=== PATIENT | female | born 1950 | race Caucasian/White ===

== ENCOUNTER 2018-12-31 15:02 | Emergency (ER) | payer BC, MEDICARE ==
[2018-12-31 15:41] VITALS: BP 141/77
--- NOTE | 2018-12-31 15:48 | UC ---
UC General HPI - HPI Summary HPI Summary: awoke last pm feeling dizzy. also notes L ear feels like has fluid. this am had some recurrent dizziness and a little nausea. dizziness occurs when turns had to side on motion of looking up/dpwn. No headache, fever, visual disturbances or numbness/tingling/weakness/facial droop. had a negative contrast CT 3 years ago because her sister a ruptured aneurysm. the ct was normal. - History of Current Complaint Chief Complaint: UCGeneralIllness Stated Complaint: DIZZINESS/NAUSEA Time Seen by Provider: 12/31/18 15:41 Hx Obtained From: Patient Hx Last Menstrual Period: N/A Pain Intensity: 0 Associated Signs & Symptoms: Negative: Fever, Headache, Vomiting - Allergy/Home Medications Allergies/Adverse Reactions: Allergies Allergy/AdvReac Type Severity Reaction Status Date / Time No Known Allergies Allergy Verified 12/31/18 15:37 Home Medications: Home Medications DULoxetine DR CAP* [Cymbalta CAP*] 60 mg PO DAILY 12/31/18 [History Confirmed ] Dextroamphetamine/Amphetamine [Adderall Xr 20 mg Capsule] 20 mg PO DAILY PRN 03/16 [History Confirmed 12/31/18] Ezetimibe TAB* [Zetia TAB*] 10 mg PO DAILY 12/31/18 [History Confirmed 12/31/18] Lisinopril/HCTZ 20/25(NF) [Zestoretic 20/25(NF)] 1 tab PO DAILY 12/31/18 [ History Confirmed 12/31/18] PMH/Surg Hx/FS Hx/Imm Hx Endocrine History: Dyslipidemia Cardiovascular History: Hypertension Psychological History: Anxiety - Surgical History Surgical History: Yes Surgery Procedure, Year, and Place: rotator cuff. left tibial plateua fx - Family History Known Family History: Positive: Other - sister with cerebral aneurysm - Social History Occupation: Employed Full-time Alcohol Use: None Substance Use Type: None Smoking Status (MU): Never Smoked Tobacco Review of Systems All Other Systems Reviewed And Are Negative: Yes Eyes: Positive: Negative Respiratory: Positive: Other - occasional whhezing with bronchitis that resolved with roommates inhaler Cardiovascular: Positive: Negative Gastrointestinal: Positive: Nausea - when dizzy Motor: Positive: Negative Neurovascular: Positive: Negative Musculoskeletal: Positive: Negative Neurological: Positive: Negative Physical Exam Triage Information Reviewed: Yes Appearance: Well-Appearing Vital Signs: Initial Vital Signs Temp 97.3 F 12/31/18 15:31 Pulse 71 12/31/18 15:31 Resp 16 12/31/18 15:31 BP 139/69 12/31/18 15:31 Pulse Ox 98 12/31/18 15:31 Vital Signs Reviewed: Yes Eyes: Positive: Conjunctiva Clear, Other: - PERRL, EOMI. Mild horizontal nystagmus with rapid tirn of headf ENT: Positive: Pharynx normal, TMs normal. Negative: Nasal congestion, Nasal drainage Neck: Positive: Supple, Nontender, No Lymphadenopathy, Other: - No carotid bruits Respiratory: Positive: Lungs clear, Normal breath sounds, No respiratory distress Cardiovascular: Positive: RRR, No Murmur Abdomen Description: Positive: Nontender, No Organomegaly, Soft Bowel Sounds: Positive: Present Musculoskeletal: Positive: ROM Intact Neurological: Positive: Other: - A&Ox3. CN 2-12 grossly intact. 5/5 strength, 2 + reflexes and sensation intactx4. steady gait. Negative rhomberg and pronator drift. Rapid trun of head reproduces dizziness the resolves with rest/being still. Psychological: Positive: Age Appropriate Behavior Skin Exam: Normal Course/Dx - Course Course Of Treatment: NO ORTHOSTATIC CHANGES. NEURO EXAM IS REASSURING. S/S'S REPRODUCIBLE WITH TURN OF HEAD. - Differential Dx - Multi-Symptom Differential Diagnoses: Other - PERIPHERAL VERTIGO, NO CONCERN FOR CENTRAL. - Diagnoses Provider Diagnosis: Dizziness Discharge - Sign-Out/Discharge Documenting (check all that apply): Patient Departure All imaging exams completed and their final reports reviewed: No Studies - Discharge Plan Condition: Stable Disposition: HOME Prescriptions: Albuterol HFA INHALER* [Ventolin HFA Inhaler*] 2 puff INH Q6H PRN #1 mdi PRN Reason: Wheezing Meclizine TAB* [Antivert 12.5 TAB*] 25 mg PO TID PRN #10 tab PRN Reason: Dizziness Patient Education Materials: Dizziness (ED) Referrals: Mela Valenzuela MD [Primary Care Provider] - 3 Days - Billing Disposition and Condition Condition: STABLE Disposition: Home - Attestation Statements Provider Attestation: Per institutional requirements, I have reviewed the chart, however, I was not consulted specifically or made aware of this patient by the midlevel provider. I did not personally evaluate, interact with , or disposition this patient.
== END 2018-12-31 16:03 | disposition home or self-care (01) ==
LOC: UCCORT 15:02
DX: R42 Dizziness and giddiness (principal); I10 Essential (primary) hypertension; F32.9 Major depressive disorder, single episode, unspecified; R11.0 Nausea; Z79.899 Other long term (current) drug therapy
CPT/HCPCS: 99212; G0463

== ENCOUNTER 2019-12-31 08:09 | Emergency (ER) | payer MEDICARE ==
[2019-12-31 08:19] VITALS: BP 149/72
--- NOTE | 2019-12-31 08:41 | UC ---
Shortness of Breath HPI - HPI Summary HPI Summary: shortness of breath x 1 week symptoms has been moderated to sever, worse with exertion , better with rest, denies any fever, no chills, had cold symptoms for the past 4 weeks with cough , chest tightness, wheezing, denies any chest pain , no calf pain, no recent travel - History of Current Complaint Chief Complaint: UCRespiratory Stated Complaint: SOB Time Seen by Provider: 12/31/19 08:20 Hx Obtained From: Patient Hx Last Menstrual Period: N/A Onset/Duration: Gradual Onset, Lasting Weeks - 1, Still Present Timing: Constant Current Severity: Moderate Dyspnea At: Exertion Aggravating Factors: Movement Alleviating Factors: Other - rest Associated Signs & Symptoms: Positive: Cough (Nonproductive), Wheezing. Negative: Chest Pain w/Cough, Chest Pain Unrelated to Cough, Fever, Chills, Diaphoresis, Nasal Congestion, Dizzy, Calf Pain/Swelling, Edema - Allergy/Home Medications Allergies/Adverse Reactions: Allergies Allergy/AdvReac Type Severity Reaction Status Date / Time No Known Allergies Allergy Verified 12/31/19 08:17 Home Medications: Home Medications Albuterol HFA INHALER* [Ventolin HFA Inhaler*] 2 puff INH Q6H PRN #1 mdi [Rx Confirmed 12/31/19] DULoxetine DR CAP* [Cymbalta CAP*] 60 mg PO DAILY 12/31/18 [History Confirmed ] Ezetimibe TAB* [Zetia TAB*] 10 mg PO DAILY 12/31/18 [History Confirmed 12/31/19] Lisinopril/HCTZ (NF) [Zestoretic 20(NF)] 1 tab PO DAILY 12/31/18 [ History Confirmed 12/31/19] Albuterol HFA INHALER* [Ventolin HFA Inhaler*] 2 puff INH Q6H PRN #1 mdi [Rx] predniSONE 20 mg TAB [Deltasone 20 MG TAB*] 40 mg PO DAILY #10 tab 12/31/19 [Rx] PMH/Surg Hx/FS Hx/Imm Hx Cardiovascular History: Hypertension - Surgical History Surgical History: Yes Surgery Procedure, Year, and Place: rotator cuff. left tibial plateua fx - Family History Known Family History: Positive: Hypertension, Other - sister with cerebral aneurysm - Social History Alcohol Use: None Substance Use Type: None Smoking Status (MU): Never Smoked Tobacco Review of Systems All Other Systems Reviewed And Are Negative: Yes Constitutional: Positive: Negative, Fatigue. Negative: Fever, Chills Skin: Positive: Negative Eyes: Positive: Negative ENT: Negative: Sore Throat, Nasal Discharge Respiratory: Positive: Shortness Of Breath, Cough Cardiovascular: Negative: Palpitations, Chest Pain Is Patient Immunocompromised?: No Physical Exam Triage Information Reviewed: Yes Appearance: Well-Appearing, No Pain Distress, Well-Nourished Vital Signs: Initial Vital Signs Temp 98.1 F 12/31/19 08:15 Pulse 83 12/31/19 08:15 Resp 20 12/31/19 08:15 BP 149/72 12/31/19 08:15 Pulse Ox 100 12/31/19 08:15 Vital Signs Reviewed: Yes Eye Exam: Normal Eyes: Positive: Conjunctiva Clear ENT: Positive: Normal ENT inspection, Hearing grossly normal, Pharynx normal Neck exam: Normal Neck: Positive: Supple, Nontender, No Lymphadenopathy Respiratory: Positive: Chest non-tender, Lungs clear, Normal breath sounds Cardiovascular: Positive: RRR, Pulses Normal, Murmur:Sys:Grade _?_/ - 3 Diagnostics - Radiology No standard instances Radiology Interpretation Completed By: Radiologist Summary of Radiographic Findings: chest xray report : IMPRESSION: NO ACTIVE CARDIOPULMONARY DISEASE. Shortness of Breath Dx - Differential Dx/Diagnosis Provider Diagnosis: SOB (shortness of breath), Bronchitis Discharge ED - Sign-Out/Discharge Documenting (check all that apply): Patient Departure All imaging exams completed and their final reports reviewed: Yes - Discharge Plan Condition: Stable Disposition: HOME Prescriptions: Albuterol HFA INHALER* [Ventolin HFA Inhaler*] 2 puff INH Q6H PRN #1 mdi PRN Reason: Sob/Wheezing predniSONE 20 mg TAB [Deltasone 20 MG TAB*] 40 mg PO DAILY #10 tab Patient Education Materials: Dyspnea (ED) Referrals: Mela Valenzuela MD [Primary Care Provider] - 7 Days Additional Instructions: will check Ddimer to r/o possible PE you will need a CT of chest if the ddimer is high will start on Prednisone 40 mg daily x 5 days cont. with albuterol inh ever 4 to 6 hrs as needed for wheezing and sob - Billing Disposition and Condition Condition: STABLE Disposition: Home
== END 2019-12-31 09:20 | disposition home or self-care (01) ==
LOC: UCCORT 08:09
DX: J40 Bronchitis, not specified as acute or chronic (principal); R06.02 Shortness of breath; I10 Essential (primary) hypertension; Z79.899 Other long term (current) drug therapy
CPT/HCPCS: 36415; 71046; 85379; 93005; 99212; G0463